=== PATIENT | male | born 1935 | race Caucasian/White ===

== ENCOUNTER 2018-04-24 12:10 | Observation (INO) | payer MEDICARE ==
[~2018-04-24] VITALS: Ht 182.9 cm; Wt 94.3 kg
[2018-04-24 12:49] LABS: BASOPHILS % (AUTO) 0.8 % (0.0-5.0); EOSINOPHILS % (AUTO) 3.6 % (0.0-8.0); HEMATOCRIT 39.8 % (42-54); LYMPHOCYTES % (AUTO) 14.7 % (21.0-51.0); MEAN CORPUSCULAR HEMOGLOBIN 32.4 pg (27.0-33.0); MEAN CORPUSCULAR HGB CONC 34.6 g/dL (32.0-36.0); MEAN CORPUSCULAR VOLUME 93.6 fL (79-99); MONOCYTES % (AUTO) 10.7 % (3.0-13.0); NEUTROPHILS % (AUTO) 70.2 % (40.0-77.0); PLATELET COUNT (AUTO) 249 K/uL (130-400); RED BLOOD CELL COUNT(AUTO) 4.25 MIL/uL (4.50-6.20); RED CELL DISTRIBUTION WIDTH 13.4 % (11.0-15.5); WHITE BLOOD COUNT (AUTO) 6.9 K/uL (4.8-10.8)
[2018-04-24 12:52] LABS: INR 1.15 (0.85-1.15)
[2018-04-24 12:54] LABS: POTASSIUM 3.9 mmol/L (3.5-5.1)
[2018-04-24 13:05] LABS: ALBUMIN 3.7 g/dL (3.5-5.0); BILIRUBIN,TOTAL 0.6 mg/dL (0.2-1.0); TOTAL PROTEIN, SERUM 7.1 g/dL (6.0-8.3)
[2018-04-24] MEDS ORDERED: ONDANSETRON HCL 4 MG/2 ML VIAL IV PRN (14:00)
[2018-04-24] MEDS ORDERED: ACETAMINOPHEN 325 MG TAB PO PRN (14:00)
[2018-04-24 16:35] VITALS: BP 141/84
[2018-04-24] MEDS ORDERED: FLUN25H NS (18:08)
[2018-04-24] MEDS ORDERED: FISH1CAP49 PO (18:08)
[2018-04-24] MEDS ORDERED: PSYL0.4C2 PO (18:08)
[2018-04-24] MEDS ORDERED: TRAM50TA4 PO (18:08)
[2018-04-24] MEDS ORDERED: RIVA20TA PO (18:08)
[2018-04-24] MEDS ORDERED: CARV6.25 PO (18:08)
[2018-04-24] MEDS ORDERED: MELA10TA3 PO (18:08)
[2018-04-24] MEDS ORDERED: FURO40TA5 PO (18:08)
[2018-04-24] MEDS ORDERED: ALBU90AE IH (18:08)
[2018-04-24] MEDS ORDERED: SPIR25TA6 PO (18:08)
[2018-04-24] MEDS ORDERED: GUAI120015 PO (18:08)
[2018-04-24] MEDS ORDERED: SACU1TAB PO (18:08)
[2018-04-24] MEDS ORDERED: GLUC-145 PO (18:08)
[2018-04-24] MEDS ORDERED: AMIO200T5 PO (18:08)
[2018-04-24] MEDS ORDERED: LANS30TA10 PO (18:08)
[2018-04-24] MEDS ORDERED: MULT-1258 PO (18:08)
[2018-04-24] MEDS ORDERED: OXCA600T37 PO (18:08)
[2018-04-24] MEDS ORDERED: ATOR10TA69 PO (18:08)
[2018-04-24] MEDS ORDERED: FURO20TA4 PO (18:08)
[2018-04-24] MEDS ORDERED: CETI-101 PO ×2 (18:08→19:37)
[2018-04-24] MEDS ORDERED: HYDR30CR77 RC (18:08)
[2018-04-24] MEDS ORDERED: DOCU100T PO ×2 (18:08→19:37)
[2018-04-24] MEDS ORDERED: IPRA42SP NS (18:08)
[2018-04-24] MEDS ORDERED: FLUNISOLIDE 25 MCG/SPRAY 25 ML NASAL SPRY EN PRN (18:30)
[2018-04-24] MEDS ORDERED: IPRATROPIUM BROMIDE NS PRN (18:30)
[2018-04-24] MEDS ORDERED: NON-FORMULARY MEDICATION 1 EACH (Cetirizine HCl (Zyrtec) 10 MG) PO SCH (18:30)
[2018-04-24] MEDS ORDERED: NON-FORMULARY MEDICATION 1 EACH (Albuterol Sulfate (Proair Respiclick) 90 MCG) IH PRN (18:30)
[2018-04-24] MEDS ORDERED: GUAIFENESIN 600 MG TABLET.ER PO PRN (18:30)
[2018-04-24] MEDS ORDERED: TRAMADOL HCL 50 MG TABLET PO PRN (18:30)
[2018-04-24] MEDS: CARVEDILOL 6.25 MG TABLET PO SCH (18:51)
[2018-04-24 19:42] VITALS: BP 142/80
[2018-04-24] MEDS ORDERED: CETIRIZINE HCL 5 MG TABLET PO PRN (19:45)
[2018-04-24] MEDS: FISH OIL 1000 MG/CAP PO SCH (21:00)
[2018-04-24] MEDS: FAMOTIDINE 20MG TAB 20 MG TAB PO SCH (21:00)
[2018-04-24] MEDS: SACUBITRIL PO SCH (21:00)
[2018-04-24] MEDS: DOCUSATE SODIUM 100 MG CAP PO SCH (21:00)
[2018-04-24] MEDS: VALSARTAN PO SCH (21:00)
[2018-04-24] MEDS: **HM**(Melatonin 10 MG PO SCH (21:00)
[2018-04-24] MEDS ORDERED: DOCUSATE SODIUM 200 MG PO SCH (21:00)
[2018-04-24] MEDS: OXCARBAZEPINE 600 MG PO SCH (21:00)
[2018-04-24] MEDS: ATORVASTATIN CALCIUM 10 MG TABLET PO SCH (21:00)
[2018-04-25] VITALS (7 sets, daily range): BP systolic 109–154; BP diastolic 60–92
[2018-04-25] MEDS ORDERED: HYDROCORTISONE/PRAMOXINE 10 GM FOAM RC PRN (06:30)
[2018-04-25] MEDS: AMIODARONE HCL 200 MG TABLET PO SCH (08:30)
[2018-04-25] MEDS: ASPIRIN 325 MG TABLET PO SCH (08:31)
[2018-04-25] MEDS: PANTOPRAZOLE SODIUM 40 MG TABLET.DR PO SCH (08:31)
[2018-04-25] MEDS: FISH OIL 1000 MG/CAP PO SCH ×2 (08:32→20:58)
[2018-04-25] MEDS: MULTIVITAMIN WITH MINERALS TABLET PO SCH (08:32)
[2018-04-25] MEDS: CARVEDILOL 6.25 MG TABLET PO SCH ×2 (08:32→20:58)
[2018-04-25] MEDS: FAMOTIDINE 20MG TAB 20 MG TAB PO SCH ×2 (08:32→20:58)
[2018-04-25] MEDS: SPIRONOLACTONE 25 MG TAB PO SCH (08:35)
[2018-04-25] MEDS: FUROSEMIDE 40 MG TABLET PO SCH (08:35)
[2018-04-25] MEDS: SACUBITRIL PO SCH ×2 (09:00→20:57)
[2018-04-25] MEDS: OXCARBAZEPINE 600 MG PO SCH ×2 (09:00→20:57)
[2018-04-25] MEDS: VALSARTAN PO SCH ×2 (09:00→20:57)
[2018-04-25] MEDS: [UNRECOGNIZED DRUG - OTHER] PO SCH (09:00)
[2018-04-25] MEDS ORDERED: ENOXAPARIN SODIUM 40 MG/0.4 ML SYRINGE SQ SCH (09:00)
[2018-04-25 10:51] LABS: HEMATOCRIT 41.1 % (42-54); MEAN CORPUSCULAR HEMOGLOBIN 31.3 pg (27.0-33.0); MEAN CORPUSCULAR HGB CONC 33.2 g/dL (32.0-36.0); MEAN CORPUSCULAR VOLUME 94.5 fL (79-99); PLATELET COUNT (AUTO) 227 K/uL (130-400); RED BLOOD CELL COUNT(AUTO) 4.35 MIL/uL (4.50-6.20); RED CELL DISTRIBUTION WIDTH 13.4 % (11.0-15.5); WHITE BLOOD COUNT (AUTO) 5.5 K/uL (4.8-10.8)
[2018-04-25 11:19] LABS: ALBUMIN 3.4 g/dL (3.5-5.0); BILIRUBIN,TOTAL 0.6 mg/dL (0.2-1.0); CREATININE 0.9 mg/dL (0.5-1.5); POTASSIUM 3.7 mmol/L (3.5-5.1); TOTAL PROTEIN, SERUM 6.7 g/dL (6.0-8.3); TROPONIN I 0.07 ng/mL (0.00-0.06)
[2018-04-25 11:26] LABS: B-TYPE NATRIURETIC PEPTIDE 321 pg/mL (0-100)
[2018-04-25] MEDS ORDERED: PSYLLIUM SEED 1 EACH PACKET PO SCH (12:00)
[2018-04-25] MEDS ORDERED: RIVAROXABAN 20 MG TABLET PO SCH (17:00)
[2018-04-25] MEDS ORDERED: FUROSEMIDE 20 MG TABLET PO SCH (17:00)
[2018-04-25] MEDS: **HM**(Melatonin 10 MG PO SCH (20:57)
[2018-04-25] MEDS: ATORVASTATIN CALCIUM 10 MG TABLET PO SCH (20:58)
[2018-04-25] MEDS: DOCUSATE SODIUM 100 MG CAP PO SCH (20:58)
[2018-04-26 03:40] VITALS: BP 140/84
[2018-04-26 07:58] VITALS: BP 165/90
[2018-04-26] MEDS: OXCARBAZEPINE 600 MG PO SCH (09:00)
[2018-04-26] MEDS: SACUBITRIL PO SCH (09:00)
[2018-04-26] MEDS: VALSARTAN PO SCH (09:00)
[2018-04-26] MEDS: ASPIRIN 325 MG TABLET PO SCH (09:00)
[2018-04-26] MEDS: [UNRECOGNIZED DRUG - OTHER] PO SCH (09:00)
[2018-04-26] MEDS: PANTOPRAZOLE SODIUM 40 MG TABLET.DR PO SCH (09:28)
[2018-04-26] MEDS: CARVEDILOL 6.25 MG TABLET PO SCH (09:29)
[2018-04-26] MEDS: FAMOTIDINE 20MG TAB 20 MG TAB PO SCH (09:29)
[2018-04-26] MEDS: MULTIVITAMIN WITH MINERALS TABLET PO SCH (09:29)
[2018-04-26] MEDS: FUROSEMIDE 40 MG TABLET PO SCH (09:29)
[2018-04-26] MEDS: FISH OIL 1000 MG/CAP PO SCH (09:30)
[2018-04-26] MEDS: AMIODARONE HCL 200 MG TABLET PO SCH (09:30)
[2018-04-26] MEDS: SPIRONOLACTONE 25 MG TAB PO SCH (09:30)
[2018-04-26 12:07] VITALS: BP 150/87
== END 2018-04-26 14:00 | disposition home or self-care (01) ==
LOC: EDH 12:10 → INTOOBSV 13:42 → EDHIP 13:42 → 2AH 16:07
PROVIDERS: ADMIT Internal Medicine; ATTEND Internal Medicine
DX: G45.9 Transient cerebral ischemic attack, unspecified (principal); G81.91 Hemiplegia, unspecified affecting right dominant side; G50.0 Trigeminal neuralgia; G25.0 Essential tremor; I11.0 Hypertensive heart disease with heart failure; I50.20 Unspecified systolic (congestive) heart failure; M50.33 Other cervical disc degeneration, cervicothoracic region; Z87.891 Personal history of nicotine dependence; Z96.651 Presence of right artificial knee joint; Z88.5 Allergy status to narcotic agent; Z95.810 Presence of automatic (implantable) cardiac defibrillator; Z83.3 Family history of diabetes mellitus; Z82.49 Family history of ischemic heart disease and other diseases of the circulatory system; Z80.3 Family history of malignant neoplasm of breast; Z80.42 Family history of malignant neoplasm of prostate; Z82.0 Family history of epilepsy and other diseases of the nervous system; Z79.899 Other long term (current) drug therapy
CPT/HCPCS: 36415; 70450; 71045; 72125; 80053; 82550; 82948; 83874; 83880; 84484; 85025; 85027; 85610; 85730; 93005; 93306; 93880; G0378; J1650